=== PATIENT | female | born 1980 | race Caucasian/White ===

== ENCOUNTER 2024-04-30 06:13 | Day surgery (SDC) | payer OTHER, SELFPAY ==
[2024-04-30] VITALS (10 sets, daily range): BP systolic 102–129; BP diastolic 49–81; BMI 43.1
[2024-04-30] MEDS: TYLENOL 1000 MG PO (11:20)
[2024-04-30] MEDS: SUBLIMAZE 50 MCG IV (13:22)
[2024-04-30] MEDS: ROXICODONE 5 MG PO (14:31)
== END 2024-04-30 14:51 | disposition home or self-care (01) ==
LOC: SDS 06:13
PROVIDERS: ATTENDING PHYSICIAN Otolaryngology Facial Plastic Surgery
DX: J32.9 Chronic sinusitis, unspecified (principal); J34.3 Hypertrophy of nasal turbinates; J34.89 Other specified disorders of nose and nasal sinuses
CPT/HCPCS: 31256; 31240; 30140; 88304; 88311

== ENCOUNTER 2024-11-02 15:38 | Emergency (ER) | payer OTHER, SELFPAY ==
[2024-11-02 15:47] VITALS: BP 177/126
[2024-11-02 16:17] LABS: Hematocrit 36.7 % (37.0-47.0); Hemoglobin 11.7 g/dL (12.0-16.0); Mean Corp Hgb Conc. 31.9 g/dL (33.0-37.0); Mean Corpuscular Volume 73.3 fL (81.0-99.0); Nucleated Red Blood Cells % 0 %; Platelet Count 365 10^3/uL (130-400); Red Cell Dist. Width 15.3 % (11.5-14.5)
[2024-11-02 16:30] LABS: ALT (SGPT) 29 U/L (0-35); AST (SGOT) 30 U/L (14-36); Albumin 4.7 g/dl (3.5-5.0); Alkaline Phosphatase 104 U/L (38-126); Blood Urea Nitrogen 16 mg/dl (7-17); Calcium 9.7 mg/dl (8.4-10.2); Carbon Dioxide 22 mmol/L (22-30); Chloride 108 mmol/L (98-107); Glucose 125 mg/dl (70-99); Potassium 4.2 mmol/L (3.5-5.1); Sodium 140 mmol/L (135-145); Total Protein 7.9 g/dl (6.3-8.2); eGFR > 60.00
--- NOTE | 2024-11-02 20:04 | ED.GENMED ---
History of Present Illness
General
Chief Complaint: Headache
Source: patient
Exam Limitations: none
Time Seen by Provider: 11/02/24 19:44
History of Present Illness
History of Present Illness:
43yoF with a history of polyneuropathy, Jewels's, chronic sinusitis, and factor V Leiden presenting with her sisters for evaluation of ongoing headaches. Patient has been having headaches for at least the past year which have been worsening over
the past week. Headaches are getting even worse the past 48 hours. Pain is located at the occipital region and upper neck and intermittently radiates to the jaw. She had sinus surgery in April of this year and has also had dental surgery which
helped her headaches temporarily. She has been using Mucinex, nasal sprays, and Advil for her symptoms without much relief. Current headache is rated as a 8-9/10 in severity. She has had migraines in the past and states this feels different. She
denies any associated photophobia, vomiting, fevers, recent head trauma.
Phy Exam
General Physical Exam
General Presentation: well appearing and no apparent distress
General Skin: warm and dry
General Habitus: normal
General Mental: alert
ENT Exam
ENT Exam: normocephalic
Additional ENT: No meningismus. +Tenderness to cervical musculature
Eye Exam
Eye Exam: PERRL and conjunctiva normal
Pulmonary Exam
Pulmonary Exam: no respiratory distress
Neurological Exam
Neurological Exam: alert, speech normal and other (No focal neuro deficits)
Isabel Coma Scale
Eye Opening: Spontaneous
Verbal Response: Oriented
Motor Response: Obeys Commands
GCS Total Score: 15
Skin Exam
Skin Exam: normal color and warm/dry
Psychiatric Exam
Psychiatric Exam: normal mood/affect
Course
Orders/Labs/Results
Orders:
Orders
11/02/24 15:[address] [CT Head W/o Iv Contrast] Urgent
Comment:
Reason For Exam: severe pain
11/02/24 16:06
CBC/With Diff [Complete Blood Count/With Diff] Urgent
CMP [Comprehensive Metabolic Panel] Urgent
11/02/24 20:03
0.9% Sodium Chloride 1000 ml [Nss] 1,000 ml IV BOLUS
Dexamethasone Sod Phosphate [Decadron] 10 mg IV NOW STA
Diphenhydramine [Benadryl] 25 mg IV NOW STA
Ketorolac [Toradol] 15 mg IV NOW STA
Magnesium Sulfate 2 Gram/50 ml [Magnesium Sulfate] 2 gram in 50 ml IV NOW
Metoclopramide [Reglan] 10 mg IV NOW STA
Abnormal Lab Results
11/02/24
16:06
Hgb 11.7 L g/dL
(12.0-16.0)
Hct 36.7 L %
(37.0-47.0)
MCV 73.3 L fL
(81.0-99.0)
MCH 23.4 L pg
(27.0-31.0)
MCHC 31.9 L g/dL
(33.0-37.0)
RDW 15.3 H %
(11.5-14.5)
Chloride 108 H mmol/L
(98-107)
Glucose 125 H mg/dl
(70-99)
Total Bilirubin 1.5 H mg/dl
(0.2-1.3)
11/02/24 16:06
11/02/24 16:06
Vital Signs
Initial and Last Documented VS:
Initial Vital Signs
Pulse Resp BP Pulse Ox
109 22 177/126 98
11/02/24 15:47 11/02/24 15:47 11/02/24 15:47 11/02/24 15:47
Last Documented Vital Signs
Pulse Resp BP Pulse Ox
93 18 122/73 95
11/02/24 21:17 11/02/24 21:17 11/02/24 21:17 11/02/24 21:17
MDM/Problems Addressed
Differential Diagnosis Includes:
43yoF here for worsening headache x 1 week. Ongoing headaches x 1 year. Pain is located in the occipital/neck region primarily. She is hypertensive in triage. +Cervical tenderness noted on exam. Differential diagnosis includes: tension headache,
Chiari malformation, migraine, TMJ
Initial ED plan: Workup initiated in triage. Labs unremarkable and CT head is negative for acute findigns. Will trial IV migraine cocktail and reassess.
*Pulse Oximetry
SaO2: 98
Oxygen Mode of Delivery: Room air
Patient hypoxic: no (98%)
*Critical Care Note
Total Time (30-74mins, 75-104mins- exclusive of procedures): Not Applicable
Update Note
Update Note:
Patient feeling much better on reassessment and headache is down to a 4/10 in severity. BP improved to 122/73. She feels comfortable with discharge. Patient advised to f/u with her PCP and neurology. ED return precautions reviewed.
ED Attending Note
-
Portions of this chart may have been created with voice recognition software.� Occasional wrong word or��sound alike� substitutions may have occurred due to the inherent limitations of voice recognition software.
Discharge Plan
Departure
Patient Disposition: Home (Routine Discharge)
Date of Disposition: 11/02/24
Time of Disposition: 21:55
Patient with high blood pressure during this ER visit?: No
Discharge Problem:
Nonintractable headache
Instructions: Headache, Adult (DC)
Prescriptions:
No Action
cetirizine [Zyrtec] 10 mg Tablet
10 mg PO HS
oxybutynin chloride 10 mg Tablet Extended Release 24hr
10 mg PO HS
sertraline 100 mg Tablet
200 mg PO HS
omeprazole 40 mg Capsule,Delayed Release(Dr/Ec)
40 mg PO DAILY
liothyronine 5 mcg Tablet
5 mcg PO DAILY
levothyroxine [Synthroid] 50 mcg Tablet
50 mcg PO DAILY
montelukast 10 mg Tablet
10 mg PO HS
fluticasone propionate [Flonase] 50 mcg/actuation [place],Suspension
2 spray INTRANASAL DAILY
doxycycline hyclate 100 mg Tablet
100 mg PO DAILY
cranberry 500 mg Capsule
500 mg PO DAILY
magnesium 200 mg Tablet
400 mg PO BID
cholestyramine (with sugar) 4 gram Powder In Packet
4 g PO DAILY
metformin 500 mg Tablet Extended Release 24hr
500 mg PO BID
cholecalciferol (vitamin D3) [Vitamin D3] 125 mcg (5,000 unit) Tablet
125 mcg PO HS
Referrals:
Ping Schafer MD [Family Provider, Family Practice]
Alireza Richardson MD [Active, Neurology]
Activity Restrictions/Additional Instructions:
Please call tomorrow to schedule follow-up appointments with your family doctor and neurology. Return to the ER with any new or worsening symptoms.
Interventions
Interventions:
*Risk Screen - Suicide Last Done: 11/02/24 15:47
*General Assessment Last Done: 11/02/24 15:47
*Neglect/Abuse Screening Last Done: 11/02/24 15:47
*ED COVID-19 Vaccine History Last Done: 11/02/24 15:47
*Nursing Disposition Last Done: 11/02/24 22:04
ED- Neurological Assessment Last Done: 11/02/24 19:30
Discharge Date and Time
Discharge Date/Time: 11/02/24 22:04
Print Language: [place]
[2024-11-02] MEDS: NSS 1000 IV (20:15)
[2024-11-02] MEDS: DECADRON 10 MG IV (20:17)
[2024-11-02] MEDS: REGLAN 10 MG IV (20:18)
[2024-11-02] MEDS: TORADOL 15 MG IV (20:20)
[2024-11-02] MEDS: BENADRYL 25 MG IV (20:21)
[2024-11-02] MEDS: MAGNESIUM SULFATE 50 IV (20:22)
[2024-11-02 21:17] VITALS: BP 122/73
== END 2024-11-02 22:04 | disposition home or self-care (01) ==
LOC: EMR 15:38
PROVIDERS: Student in an Organized Health Care Education/Training Program; EMERGENCY PHYSICIAN Emergency Medicine; FAMILY PHYSICIAN Student in an Organized Health Care Education/Training Program
DX: R51.9 Headache, unspecified (principal); D68.51 Activated protein C resistance
CPT/HCPCS: 96365; 96375; 99284; 70450; 80053; 85025